=== PATIENT | male | born 1995 | race Caucasian/White ===

== ENCOUNTER 2018-05-17 10:23 | Emergency (ER) | payer SELFPAY ==
[~2018-05-17] VITALS: Ht 188 cm; Wt 106.6 kg
[~2018-05-17 10:23] MED LIST: AZIT250T12 PO; D-ME118S33 PO; SULF1TAB35 PO
--- NOTE | 2018-05-17 11:07 | Diagnostic Imaging Report ---
EXAM: HAND, RIGHT, 3 VIEWS INDICATION: Punched wall. Hand swelling. COMPARISON: None. FINDINGS: Comminuted fractures of the distal right fifth metacarpal with moderate volar angulation. No other fractures. No radiopaque foreign bodies. IMPRESSION: Comminuted fracture of the distal right fifth metacarpal with moderate volar angulation. Dictated by: Dictated on workstation # [id number]
--- NOTE | 2018-05-17 11:23 | ED Upper Extremity ---
General Chief Complaint: Upper Extremity Stated Complaint: RIGHT HAND PAIN FROM PUNCHING WALL Nursing Triage Note: pt presents to ed with complaints of r hand pain after punching a wall when upset at 1900 yesterday. Nursing Sepsis Screen: No Definite Risk Source: patient Exam Limitations: no limitations History of Present Illness Date Seen by Provider: May 17, 2018 Time Seen by Provider: 11:15 Initial Comments Patient is a 23-year-old male who presents to the emergency room with complaints of right hand pain after punching a wall at 1900 last night. He reports he became upset and punched a sheet rock wall. Onset: yesterday Pain/Injury Location: right hand Method of Injury: direct blow Modifying Factors: Worse With Movement Allergies and Home Medications Allergies Coded Allergies: No Known Drug Allergies (Unverified , 06/16/11) Home Medications Azithromycin 250 Mg Tablet, 250 MG PO UD TAKE 2 TABLETS ON DAY ONE THEN TAKE 1 TABLET DAILY FOR FOUR MORE DAYS Prescribed by: BRENDA ARCHER on 12/03/17 1125 D-Methorphan Hb/P-Epd HCl/Bpm 118 Ml Syrup, 5 ML PO Q4H PRN for CONGESTION Prescribed by: BRENDA ARCHER on 12/03/17 1125 Hydrocodone Bit/Acetaminophen 1 Tab Tab, 1-2 EACH PO Q6H PRN for PAIN-MODERATE Prescribed by: MADDI RAMOS on 05/17/18 1134 Sulfamethoxazole/Trimethoprim 1 Each Tablet, 1 EACH PO BID Prescribed by: BRENDA ARCHER on 07/01/16 1724 Patient Home Medication List Home Medication List Reviewed: Yes Review of Systems Constitutional: see HPI; No chills, No fever Musculoskeletal: joint pain (right hand pain), joint swelling (right hand swelling) All Other Systems Reviewed Negative Unless Noted: Yes Past Jzvhyof-Vvopye-Ywrpca Hx Past Med/Social Hx: Reviewed Nursing Past Med/Soc Hx Patient Social History Alcohol Use: Occasionally Uses Recreational Drug Use: No Smoking Status: Never a Smoker Recent Foreign Travel: No Contact w/Someone Who Travel: No Recent Infectious Disease Expo: No Recent Hopitalizations: No Physical Abuse: No Sexual Abuse: No Mistreated: No Fear: No Past Medical History Surgeries: No Respiratory: No Cardiac: No Neurological: No Reproductive Disorders: No Genitourinary: No Gastrointestinal: No Musculoskeletal: No Endocrine: No Cancer: No Psychosocial: No Integumentary: No Family Medical History Reviewed Nursing Family Hx Physical Exam Vital Signs Vital Signs - First Documented 05/17/18 10:32 Temp 98.1 Pulse 67 Resp 18 B/P (MAP) 116/75 (89) Pulse Ox 96 Capillary Refill : Less Than 3 Seconds Height, Weight, BMI Height: 6'2.00" Weight: 235lbs. oz. 106.197939nx; BMI Method:Stated General Appearance: WD/WN, no apparent distress HEENT: PERRL/EOMI Cardiovascular: normal peripheral pulses, regular rate, rhythm, no edema, no gallop, no JVD, no murmur Respiratory: chest non-tender, lungs clear, normal breath sounds, no respiratory distress, no accessory muscle use Wrist: Yes normal inspection, Yes non-tender (bilaterally) Hand: Right, bone tenderness, ecchymosis (over the fourth and fifth finger on the dorsal surface of the hand), soft tissue tenderness, swelling Neurologic/Tendon: normal sensation, normal motor functions, normal tendon functions, responds to pain, no evidence tendon injury, other (normal capillary refill) Neurologic/Psychiatric: alert, normal mood/affect, oriented x 3 Skin: normal color, warm/dry Procedures/Interventions Splinting and Joint Reduction : Pre-Proc Neuro Vasc Exam: normal Post-Proc Neuro Vasc Exam: normal Arm Sling: Large Hand-Made Type: orthoglass Splint Application: Short Arm (ulnar gutter) Progress/Results/Core Measures Results/Orders Vital Signs/I&O 05/17/18 05/17/18 10:32 12:01 Temp 98.1 Pulse 67 70 Resp 18 20 B/P (MAP) 116/75 (89) 120/74 (89) Pulse Ox 96 99 Blood Pressure Mean: 89 Progress Progress Note : Time: 11:27 Progress Note I have seen and evaluated the patient. He was placed in a ulnar gutter splint the right hand. He was instructed to follow-up with an orthopedic surgeon for further evaluation. He agrees with plan of care, return precautions were given. Diagnostic Imaging Diagonstic Imaging: Xray Plain Films/CT/US/NM/MRI: hand Comments VIA [facility]. [place], [place] NAME: JOVANYRAHUL Ari MED REC#: [id number] PT STATUS: REG ER : 1995 PHYSICIAN: COLLINS ORTIZ MD ADMIT DATE: 05/17/18/ER Draft Date of Exam:05/17/18 HAND, RIGHT, 3 VIEWS EXAM: HAND, RIGHT, 3 VIEWS INDICATION: Punched wall. Hand swelling. COMPARISON: None. FINDINGS: Comminuted fractures of the distal right fifth metacarpal with moderate volar angulation. No other fractures. No radiopaque foreign bodies. IMPRESSION: Comminuted fracture of the distal right fifth metacarpal with moderate volar angulation. Dictated on workstation # [id number] Dict: 05/17/18 1103 Trans: 05/17/18 1107 [facility] [id number] Interpreted by: MEGAN CASTANEDA MD Electronically signed by: Reviewed: Reviewed by Me Departure Impression Primary Impression: Fracture of hand Disposition: 01 HOME, SELF-CARE Condition: Stable/Unchanged Departure-Patient Inst. Decision time for Depature: 11:31 Referrals: ARGENIS SHEPPARD,LOCAL PHYSICIAN (PCP) Primary Care Physician LAMAR GONZALEZ MD Patient Instructions: Boxer's Fracture (DC), LOCAL PHYSICIAN LIST Add. Discharge Instructions: Wear the splint at all times. Take medication as directed. Follow-up with an orthopedic surgeon within 1 week for follow up calling first thing Saturday morning for an appointment time. Use ice to sore areas at 20 minute intervals. Follow-up with a primary care provider within 1 week for recheck. Return back to the emergency room for any worsening pain, swelling, numbness, tingling, worsening symptoms, or any other concerns as needed. All discharge instructions reviewed with patient and/or family. Voiced understanding. Scripts Hydrocodone Bit/Acetaminophen (Hydrocodone/Acetaminophen 5/325mg Tablet) 1 Tab Tab 1-2 EACH PO Q6H PRN for PAIN-MODERATE MDD 10, #20 TAB Prov: MADDI RAMOS 05/17/18 MADDI RAMOS May 17, 2018 11:23
[2018-05-17] MEDS ORDERED: ACHD5005 PO (11:34)
[2018-05-17 12:01] VITALS: BP 120/74
== END 2018-05-17 12:01 | disposition home or self-care (01) ==
LOC: EDUNIT# 10:23 → ER 10:25
DX: S62.316A Displaced fracture of base of fifth metacarpal bone, right hand, initial encounter for closed fracture (principal); W22.01XA Walked into wall, initial encounter
CPT/HCPCS: 29125; 73130

== ENCOUNTER 2019-04-09 00:18 | Emergency (ER) | payer OTHER ==
[~2019-04-09] VITALS: Ht 180.3 cm; Wt 90.7 kg
[~2019-04-09 00:18] MED LIST changes: +ACHD5005 PO
[2019-04-09 02:38] LABS: BILIRUBIN,URINE NEGATIVE (NEGATIVE); CLARITY,URINE CLEAR; COLOR,URINE AMBER; GLUCOSE, URINE (UA) NEGATIVE (NEGATIVE); KETONES,URINE 3+ (NEGATIVE); LEUKOCYTE ESTERASE ,URINE 1+ (NEGATIVE); NITRITE,URINE NEGATIVE (NEGATIVE); PH,URINE 5 (5-9); PROTEIN,URINE 2+ (NEGATIVE); UROBILINOGEN,URINE 1 MG/DL (NORMAL)
[2019-04-09 02:41] LABS: BASOPHILS # (AUTO) 0.1 10^3/uL (0.0-0.1); BASOPHILS % (AUTO) 0 % (0-10); EOSINOPHILS # (AUTO) 0.2 10^3/uL (0.0-0.3); EOSINOPHILS % (AUTO) 2 % (0-10); HEMATOCRIT 50 % (40-54); HEMOGLOBIN 17.6 G/DL (13.3-17.7); LYMPHOCYTES # (AUTO) 3.2 X 10^3 (1.0-4.0); LYMPHOCYTES % (AUTO) 25 % (12-44); MEAN CORPUSCULAR HEMOGLOBIN 30 PG (25-34); MEAN CORPUSCULAR HGB CONC 35 G/DL (32-36); MEAN CORPUSCULAR VOLUME 84 FL (80-99); MEAN PLATELET VOLUME 10.6 FL (7.4-10.4); MONOCYTES # (AUTO) 1.1 X 10^3 (0.0-1.0); MONOCYTES % (AUTO) 9 % (0-12); NEUTROPHILS % (AUTO) 64 % (42-75); PLATELET COUNT 331 10^3/uL (130-400); RED CELL DISTRIBUTION WIDTH 13.2 % (10.0-14.5); WHITE BLOOD COUNT 12.6 10^3/uL (4.3-11.0)
[2019-04-09 02:54] LABS: AMORPHOUS SEDIMENT,UR FEW AMOR URATES /LPF; BACTERIA,URINE TRACE /HPF; RBC,URINE RARE /HPF; SQUAMOUS EPITHELIAL CELL,UR RARE /HPF; WBC,URINE RARE /HPF
[2019-04-09 02:55] LABS: AMPHETAMINE SCREEN, URINE NEGATIVE (NEGATIVE); BARBITURATE SCREEN URINE NEGATIVE (NEGATIVE); BENZODIAZEPINES SCREEN URINE NEGATIVE (NEGATIVE); CANNABINOID SCREEN, URINE POSITIVE (NEGATIVE); COCAINE SCREEN URINE NEGATIVE (NEGATIVE); METHADONE STAT NEGATIVE (NEGATIVE); METHAMPHETAMINE SCREEN URINE S NEGATIVE (NEGATIVE); OPIATE SCREEN URINE NEGATIVE (NEGATIVE); OXYCODONE STAT NEGATIVE (NEGATIVE); PROPOXYPHENE STAT NEGATIVE (NEGATIVE); TRICYCLIC ANTIDEPRESSANTS SCRE NEGATIVE (NEGATIVE)
[2019-04-09 03:17] LABS: ALANINE AMINOTRANSFERASE 25 U/L (0-55); ALBUMIN 5.5 GM/DL (3.2-4.5); ALKALINE PHOSPHATASE 88 U/L (40-136); BILIRUBIN,TOTAL 2.5 MG/DL (0.1-1.0); BUN/CREATININE RATIO 16; CALCIUM 10.6 MG/DL (8.5-10.1); CARBON DIOXIDE 20 MMOL/L (21-32); CHLORIDE 106 MMOL/L (98-107); GFR ESTIMATED > 60; GLUCOSE 78 MG/DL (70-105); MAGNESIUM 2.2 MG/DL (1.6-2.4); POTASSIUM 3.7 MMOL/L (3.6-5.0); SODIUM 143 MMOL/L (135-145); TOTAL PROTEIN 9.6 GM/DL (6.4-8.2)
--- NOTE | 2019-04-09 03:39 | ED General ---
General Chief Complaint: Psych/Social Disorder Stated Complaint: CONFUSSED, MENTAL ISSUES,BLURRY VISION Nursing Triage Note: increased anxiety, blurred vision Nursing Sepsis Screen: No Definite Risk ([place]) History of Present Illness Date Seen by Provider: Apr 09, 2019 Time Seen by Provider: 02:45 Initial Comments 24 yo male presents to the ER complaining of blurry vision. Patients states that he believes he has had blurry vision due to high blood pressure, but does not have a primary care doctor to be diagnosed and treated. Vitals during the exam was BP of148/94 with a HR of 71. He has not had any pain but states that he has been nauseous for 2 weeks and has not been able to eat due to poor appetite. He was most symptomatic Saturday the (yesterday), when he began feeling SOB, headache, weakness, chills, lightheaded, and felt as if he was going to pass out. He drinks alcohol once every two months, smokes marijuana and quit smoking cigarettes 1.5 years ago. 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[place]) Allergies and Home Medications Allergies Coded Allergies: No Known Drug Allergies (Unverified , 06/16/11) Review of Systems Review of Systems Constitutional: chills, dizziness, weakness EENTM: blurred vision, throat pain; No double vision Respiratory: dyspnea on exertion, short of breath Gastrointestinal: No abdominal pain Psychiatric/Neurological: Headache ([place]) Past Rodsrbn-Qanipq-Txuvmf Hx Patient Social History Alcohol Use: Denies Use Recreational Drug Use: Yes Drug of Choice: marijuana Recent Foreign Travel: No Contact w/Someone Who Travel: No Recent Infectious Disease Expo: No Recent Hopitalizations: No Physical Abuse: No Sexual Abuse: No Mistreated: No Fear: No ([place]) Past Medical History Surgeries: No Respiratory: No Cardiac: No Neurological: No Reproductive Disorders: No Genitourinary: No Gastrointestinal: No Musculoskeletal: No Endocrine: No HEENT: No Cancer: No Psychosocial: Yes (WAS STARTED ON MEDICATION AT AGE 18 "IT DIDNT HELP") Depression Integumentary: No ([place]) Physical Exam Vital Signs Vital Signs - First Documented 04/09/19 01:13 Temp 97.8 Pulse 85 Resp 20 B/P (MAP) 140/110 (120) Pulse Ox 99 O2 Delivery Room Air (ANURAG ROJAS MD) Vital Signs Capillary Refill : Less Than 3 Seconds ([place]) Height, Weight, BMI Height: 5'11.00" Weight: 200lbs. oz. 90.135372gk; 22.80 BMI Method:Stated General Appearance: No Apparent Distress, WD/WN Eyes: Bilateral Eye Normal Inspection, Bilateral Eye PERRL, Bilateral Eye EOMI HEENT: TMs Normal, Normal ENT Inspection, Other (Uvula inflamed) Respiratory: Chest Non Tender, Lungs Clear, Normal Breath Sounds, No Accessory Muscle Use, No Respiratory Distress Cardiovascular: Regular Rate, Rhythm, No Edema, No Gallop, No JVD, No Murmur, Normal Peripheral Pulses Skin: Normal Color, Warm/Dry ([place]) Progress/Results/Core Measures Suspected Sepsis Recent Fever Within 48 Hours: No Infection Criteria Present: None New/Unexplained Altered Menta: No Sepsis Screen: No Definite Risk SIRS Temperature:97.8 Pulse: 85 Respiratory Rate: 20 Laboratory Tests 04/09/19 02:35: White Blood Count 12.6H Blood Pressure 140 /110 Mean: 120 Laboratory Tests 04/09/19 02:35: Creatinine 1.10, Platelet Count 331, Total Bilirubin 2.5H ([place]) Results/Orders Lab Results Laboratory Tests Test 04/09/19 02:34 04/09/19 02:35 04/09/19 02:36 Range/Units Urine Color SPENCER H Urine Clarity CLEAR Urine pH 5 5-9 Urine Specific [place] 1.030 H 1.016-1.022 Urine Protein 2+ H NEGATIVE Urine Glucose (UA) NEGATIVE NEGATIVE Urine Ketones 3+ H NEGATIVE Urine Nitrite NEGATIVE NEGATIVE Urine Bilirubin NEGATIVE NEGATIVE Urine Urobilinogen 1 NORMAL MG/DL Urine Leukocyte Esterase 1+ H NEGATIVE Urine RBC (Auto) NEGATIVE NEGATIVE Urine RBC RARE /HPF Urine WBC RARE /HPF Urine Squamous Epithelial Cells RARE /HPF Urine Crystals PRESENT H /LPF Urine Amorphous Sediment FEW SINA URATES H /LPF Urine Bacteria TRACE /HPF Urine Casts NONE /LPF Urine Mucus MODERATE H /LPF Urine Culture Indicated NO Urine Opiates Screen NEGATIVE NEGATIVE Urine Oxycodone Screen NEGATIVE NEGATIVE Urine Methadone Screen NEGATIVE NEGATIVE Urine Propoxyphene Screen NEGATIVE NEGATIVE Urine Barbiturates Screen NEGATIVE NEGATIVE Ur Tricyclic Antidepressants Screen NEGATIVE NEGATIVE Urine Phencyclidine Screen NEGATIVE NEGATIVE Urine Amphetamines Screen NEGATIVE NEGATIVE Urine Methamphetamines Screen NEGATIVE NEGATIVE Urine Benzodiazepines Screen NEGATIVE NEGATIVE Urine Cocaine Screen NEGATIVE NEGATIVE Urine Cannabinoids Screen POSITIVE H NEGATIVE White Blood Count 12.6 H 4.3-11.0 10^3/uL Red Blood Count 5.91 H 4.35-5.85 10^6/uL Hemoglobin 17.6 13.3-17.7 G/DL Hematocrit 50 40-54 % Mean Corpuscular Volume 84 80-99 FL Mean Corpuscular Hemoglobin 30 25-34 PG Mean Corpuscular Hemoglobin Concent 35 32-36 G/DL Red Cell Distribution Width 13.2 10.0-14.5 % Platelet Count 331 130-400 10^3/uL Mean Platelet Volume 10.6 H 7.4-10.4 FL Neutrophils (%) (Auto) 64 42-75 % Lymphocytes (%) (Auto) 25 12-44 % Monocytes (%) (Auto) 9 0-12 % Eosinophils (%) (Auto) 2 0-10 % Basophils (%) (Auto) 0 0-10 % Neutrophils # (Auto) 8.0 H 1.8-7.8 X 10^3 Lymphocytes # (Auto) 3.2 1.0-4.0 X 10^3 Monocytes # (Auto) 1.1 H 0.0-1.0 X 10^3 Eosinophils # (Auto) 0.2 0.0-0.3 10^3/uL Basophils # (Auto) 0.1 0.0-0.1 10^3/uL Sodium Level 143 135-145 MMOL/L Potassium Level 3.7 3.6-5.0 MMOL/L Chloride Level 106 98-107 MMOL/L Carbon Dioxide Level 20 L 21-32 MMOL/L Anion Gap 17 H 5-14 MMOL/L Blood Urea Nitrogen 18 7-18 MG/DL Creatinine 1.10 0.60-1.30 MG/DL Estimat Glomerular Filtration Rate > 60 BUN/Creatinine Ratio 16 Glucose Level 78 70-105 MG/DL Calcium Level 10.6 H 8.5-10.1 MG/DL Corrected Calcium 8.5-10.1 MG/DL Magnesium Level 2.2 1.6-2.4 MG/DL Total Bilirubin 2.5 H 0.1-1.0 MG/DL Aspartate Amino Transf (AST/SGOT) 23 5-34 U/L Alanine Aminotransferase (ALT/SGPT) 25 0-55 U/L Alkaline Phosphatase 88 40-136 U/L Total Protein 9.6 H 6.4-8.2 GM/DL Albumin 5.5 H 3.2-4.5 GM/DL Serum Alcohol < 10 <10 MG/DL Glucometer 77 70-110 MG/DL (ANURAG ROJAS MD) Micro Results Microbiology 04/09/19 Influenza Types A,B Antigen (LISSY) - Final, Complete (ANURAG ROJAS MD) My Orders Orders - ANURAG ROJAS MD Alcohol (04/09/19 00:44) Cbc With Automated Diff (04/09/19 00:44) Comprehensive Metabolic Panel (04/09/19 00:44) Drug Screen Stat (Urine) (04/09/19 00:44) Magnesium (04/09/19 00:44) Ua Culture If Indicated (04/09/19 00:44) Accucheck Stat ONCE (04/09/19 00:44) Ed Iv/Invasive Line Start (04/09/19 00:44) Lactated Ringers (Lr 1000 Ml Iv Solution (04/09/19 03:16) Influenza A And B Antigens (04/09/19 03:16) Chest Pa/Lat (2 View) (04/09/19 03:39) (ANURAG ROJAS MD) Medications Given in ED Current Medications Medications Dose Ordered Sig/Opal Route Start Time Stop Time Status Last Admin Dose Admin Lactated Ringer's 1,000 ml @ 0 mls/hr Q0M ONCE IV 04/09/19 03:16 04/09/19 03:18 DC 04/09/19 03:51 1,000 MLS/HR (ANURAG ROJAS MD) Vital Signs/I&O 04/09/19 01:13 Temp 97.8 Pulse 85 Resp 20 B/P (MAP) 140/110 (120) Pulse Ox 99 O2 Delivery Room Air (ANURAG ROJAS MD) Vital Signs/I&O Capillary Refill : Less Than 3 Seconds ([place]) Blood Pressure Mean: 120 Point of Care Testing Finger Stick Blood Glucose: 77 ([place] [facility]) Departure Impression Primary Impression: Cough Additional Impressions: Leukocytosis Qualified Codes: D72.829 - Elevated white blood cell count, unspecified Altered mental status Qualified Codes: R41.82 - Altered mental status, unspecified Uvulitis Disposition: HOME, SELF-CARE Condition: Improved Departure-Patient Inst. Decision time for Depature: 04:48 (ANURAG ROJAS MD) Referrals: NO,LOCAL PHYSICIAN (PCP/Family) Primary Care Physician Patient Instructions: Cough in Adults Add. Discharge Instructions: Drink plenty of clear liquids. Follow-up with a primary care provider soon as possible. Complete azithromycin as prescribed. Return to care if you have worsening symptoms. Consider also establishing with a behavioral health provider to work on issues of anxiety and anger. All discharge instructions reviewed with patient and/or family. Voiced understanding. Scripts Azithromycin (Azithromycin) 250 Mg Tablet 250 MG PO UD, #6 TAB TAKE 2 TABLETS ON DAY ONE THEN TAKE 1 TABLET DAILY FOR FOUR MORE DAYS Prov: ANURAG ROJAS MD 04/09/19 [facility] Apr 09, 2019 03:39 ANURAG ROJAS MD Apr 09, 2019 04:49
[2019-04-09] MEDS: LACTATED RINGERS 1,000 ML IV ONE (03:51)
[2019-04-09] MEDS ORDERED: AZIT250T12 PO (04:54)
[2019-04-09 04:55] VITALS: BP 143/89
--- NOTE | 2019-04-09 07:22 | Diagnostic Imaging Report ---
Patient History: Chest pain.. Technique: Two views of the chest Comparison: 12/03/2017 FINDINGS: The lung volumes are normal. No focal consolidation is seen. No large pleural effusion or pneumothorax is seen. The cardiomediastinal silhouette is normal in size and contour. No acute osseous abnormality is seen. IMPRESSION: No acute pulmonary abnormality seen. Dictated by: Dictated on workstation # [id number]
== END 2019-04-09 04:55 | disposition home or self-care (01) ==
LOC: EDUNIT# 00:18 → ER 00:22
DX: R05 Cough (principal); D72.829 Elevated white blood cell count, unspecified; R41.82 Altered mental status, unspecified; K12.2 Cellulitis and abscess of mouth; F32.9 Major depressive disorder, single episode, unspecified; Z87.891 Personal history of nicotine dependence
CPT/HCPCS: 36415; 71046; 80053; 80306; 80320; 81000; 82962; 83735; 85025; 87804

== ENCOUNTER → 2022-03-15 | Outpatient (CLI) | payer OTHER ==
[~2022-03-15] VITALS: Ht 180.3 cm; Wt 95.5 kg
[~2022-03-15] MED LIST changes: +DOCU-143 PO; -SULF1TAB35 PO; +SULF1TAB38 PO
== END | disposition home or self-care (01) ==
LOC: PREOP 05:33
PROVIDERS: ATTEND Surgery
DX: Z01.818 Encounter for other preprocedural examination (principal)

== ENCOUNTER 2022-03-21 06:13 | Day surgery (SDC) | payer OTHER ==
[~2022-03-21] VITALS: Ht 180.3 cm; Wt 95.5 kg
[2022-03-21] VITALS (11 sets, daily range): BP systolic 129–151; BP diastolic 62–89
[~2022-03-21 06:13] MED LIST changes: -DOCU-143 PO
[2022-03-21] MEDS ORDERED: ceFAZolin 2 GM IV Premixed 50 ML IV ONE (07:00)
[2022-03-21] MEDS ORDERED: proPOfol 200 MG/20 ML (DIPRIVAN) VIAL IV ONE (07:08)
[2022-03-21] MEDS ORDERED: ROCURONIUM 50 MG/5 ML (ZEMURON) VIAL IV ONE ×2 (07:08→09:10)
[2022-03-21] MEDS ORDERED: MIDAZOLAM 2 MG/2 ML (VERSED) VIAL ONE (07:08)
[2022-03-21] MEDS ORDERED: LIDOCAINE PF 2% 5 ML (XYLOCAINE) VIAL ONE (07:08)
[2022-03-21] MEDS ORDERED: fentaNYL INJ 100 MCG/2 ML AMP ONE ×2 (07:08→11:51)
[2022-03-21] MEDS ORDERED: LIDOCAINE/EPI 2% 1:200,00 (XYLOCAINE) 20 ML VIAL ONE (07:18)
[2022-03-21] MEDS: LACTATED RINGERS 1,000 ML IV PRN ×2 (07:20→08:58)
--- NOTE | 2022-03-21 07:59 | Progress Note-Pre Operative ---
Pre-Operative Progress Note Date of Available H&P: Feb 23, 2022 Date H&P Reviewed: Mar 21, 2022 Time H&P Reviewed: 07:45 History & Physical: H&P Reviewed, Patient Examed, No changes noted Pre-Operative Diagnosis: bilateral inguinal hernia LUCIANA SHELBY DO Mar 21, 2022 07:59
[2022-03-21] MEDS ORDERED: ONDANSETRON 4 MG/2 ML (SDV) Z0FRAN ONE (09:11)
[2022-03-21] MEDS ORDERED: GLYCOPYRROLATE 0.2 MG/ML (ROBINUL) 2 ML VIAL ONE ×2 (11:02→11:04)
[2022-03-21] MEDS ORDERED: NEOSTIGMINE (BLOXIVERZ ) 1 MG/1ML 10 ML VIAL ONE (11:02)
[2022-03-21] MEDS ORDERED: HYDROCORTISONE 100 MG/2 ML (Solu-CORTEF) VIAL ONE (11:10)
[2022-03-21] MEDS ORDERED: HYDROmorphone 2 MG/ML VIAL (DILAUDID) ONE (11:10)
[2022-03-21] MEDS ORDERED: DOCU-143 PO (11:16)
[2022-03-21] MEDS ORDERED: ACHD5005 PO (11:16)
--- NOTE | 2022-03-21 11:17 | Discharge Inst-Simple/Standard ---
Discharge Inst-Standard Discharge Medications New, Converted or Re-Newed RX: Transmitted to Pharmacy Patient Instructions/Follow Up Plan of Care/Instructions/FU: 2 weeks Albertina Activity as Tolerated: No Discharge Diet: Regular Diet Other Inst to Patient Follow up Appt: Make appointment for 2 week. Instructions: No lifting greater than 10 pounds. No strenuous activity. May shower in 24 hours, no tub bath or soaking. Use incentive spirometer at home as directed. No Smoking Skin/Wound Care: You have special glue over your incision that will fall off on it's own. Symptoms to Report: Appetite Changes, Extremity Discoloration, Numbness/Tingling, Swelling Increased, Bleeding Excessive, Eyesight Changes, Pain Increased, Urine Color Change, Constipation(Persistent), Fever over 101 degree F, Pain/Pressure in chest, Urinating Difficulty, Cough Up/Vomit Blood, Heart Beat Irreg/Pounding, Pain/Pressure in jaw, Vaginal Bleeding Increase, Cramps in feet or legs, Lightheadedness, Pain/Pressure in shoulder, Diarrhea(Persistent), Memory Changes Suddenly, Questions/Concerns, Weight gain consecutive days, Dizziness/Fainting, Nausea/Vomiting, Shortness of Breath, Weight gain over 2 pounds If questions or concerns contact your physician Or seek help at emergency department. LUCIANA SHELBY DO Mar 21, 2022 11:17
--- NOTE | 2022-03-21 11:18 | Progress Note-Post Operative ---
Post-Operative Progess Note Surgeon (s)/Javascript Web Developer (s) Surgeon LUCIANA SHELBY DO Javascript Web Developer: Dr. William Pre-Operative Diagnosis bilateral inguinal hernia Post-Operative Diagnosis b/l direct inguinal hernia cord left cord lipoma Procedure & Operative Findings Date of Procedure 03/21/22 Procedure Performed/Findings robotic b/l inguinal hernia repair c mesh, excision left cord lipoma Anesthesia Type general Estimated Blood Loss Estimated blood loss (mL): minimal Specimens/Packing Specimens Removed left cord lipoma LUCIANA SHELBY DO Mar 21, 2022 11:18
--- NOTE | 2022-03-21 11:41 | Anesthesia-General Post-Op ---
General Patient Condition Mental Status/LOC: Same as Preop Cardiovascular: Satisfactory Nausea/Vomiting: Absent Respiratory: Satisfactory Pain: Controlled Complications: Absent Post Op Complications Complications None Follow Up Care/Instructions Patient Instructions None needed. Anesthesia/Patient Condition Patient Condition Patient is doing well, no complaints, stable vital signs, no apparent adverse anesthesia problems. No complications reported per nursing. JAYESH SIMMS CRNA Mar 21, 2022 11:41
[2022-03-21] MEDS ORDERED: ONDANSETRON 4 MG/2 ML (SDV) Z0FRAN IVP PRN (11:45)
[2022-03-21] MEDS ORDERED: fentaNYL INJ 100 MCG/2 ML AMP IVP ONE (11:45)
[2022-03-21] MEDS ORDERED: HYDROcodone/APAP 5 MG/325 MG (LORTAB) TAB PO ONE (12:45)
[2022-03-21] MEDS ORDERED: HYDROcodone/APAP 5 MG/325 MG (LORTAB) TAB ONE (12:48)
[2022-03-21] MEDS ORDERED: SEVOFLURANE (ULTANE) 15 ML INHAL SOLN ONE (13:00)
--- NOTE | 2022-03-22 06:14 | OPERATIVE REPORT ---
DATE OF SERVICE: 03/21/2022 PREOPERATIVE DIAGNOSIS: Bilateral inguinal hernia. POSTOPERATIVE DIAGNOSIS: Bilateral direct inguinal hernias and left cord lipoma. PROCEDURE: Robotic bilateral inguinal hernia repair and excision with cord lipoma. SURGEON: Gaurav Eng DO. SUPERVISOR [employer]: Dr. William, assisted in retraction, dissection and closure. ANESTHESIA: General. ESTIMATED BLOOD LOSS: Minimal. COMPLICATIONS: None. INDICATIONS: The patient is a 27-year-old male with bilateral inguinal hernias. He understands risks and benefits of procedure and wishes to proceed. Consent was signed in the chart. DESCRIPTION OF PROCEDURE: The patient was taken to the operating suite, was prepped and draped in sterile fashion. Surgical pause was performed. Local anesthetic was infiltrated around the umbilicus. 11-blade scalpel was used to make a skin incision. Cautery was used to dissect down to the subcutaneous tissue. The fascia was then scored. A 0 Vicryl was placed in a [id number]-ew-bbnil fashion for closure at the end of the case. A madrigal trocar was inserted and pneumoperitoneum was achieved. Under direct visualization of the laparoscope, an 8 mm trocar was placed in the right side of the abdomen and one in the left side of the abdomen. The patient was placed head down approximately 15 degrees. The robot was then docked. The abdomen was inspected. The patient had bilateral direct inguinal hernias. The peritoneum was then taken down with blunt and scissor dissection all the way down to Darrell's ligament and also taken down bilaterally. The direct hernias were able to be dissected free. Left cord lipoma, which was dissected off with cautery scissors and removed. The peritoneum was taken down approximately 2 cm below Darrell's ligament on both medial and laterally. Once taken down, an extra-large left and right mesh was inserted into the abdomen, secured to Darrell's ligament on both sides and also secured laterally on the superior aspect of the mesh. Once both meshes were secured, a V-Loc suture was then used to close the peritoneum. A small tear was on the right peritoneum, which was closed with 3-0 Vicryl suture. All the needles were removed and the robot was undocked. The umbilical incision was then closed with the previously placed 0 Vicryl. The trocars were all removed and the skin was then closed using 4-0 Monocryl in subcuticular fashion. The abdomen was then washed and dried and skin Affix was placed over the incisions. The patient tolerated procedure well without any complications, taken to recovery room in stable condition. Job ID: [id number] DocumentID: [id number] Dictated Date: 03/21/2022 19:13:26 Account Support Specialist Date: 03/22/2022 06:14:19 Dictated By: DO SHYLA HEATON
== END 2022-03-21 14:35 | disposition home or self-care (01) ==
LOC: SDC 06:13
PROVIDERS: ATTEND Surgery
DX: K40.20 Bilateral inguinal hernia, without obstruction or gangrene, not specified as recurrent (principal); D17.6 Benign lipomatous neoplasm of spermatic cord; Z87.891 Personal history of nicotine dependence; Z88.5 Allergy status to narcotic agent
CPT/HCPCS: 49650; 55559; 87081; C1781 ×2

== ENCOUNTER 2023-02-02 12:07 | Emergency (ER) | payer OTHER ==
[~2023-02-02] VITALS: Ht 180.3 cm; Wt 88.5 kg
[~2023-02-02 12:07] MED LIST changes: +DOCU-143 PO
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
[2023-02-02] MEDS ORDERED: AZIT250T12 PO (13:28)
[2023-02-02 13:42] VITALS: BP 151/72
== END 2023-02-02 13:45 | disposition home or self-care (01) ==
LOC: EDUNIT# 12:07 → ER 12:11
DX: S06.0X0A Concussion without loss of consciousness, initial encounter (principal); T14.8XXA Other injury of unspecified body region, initial encounter; J32.9 Chronic sinusitis, unspecified; Z87.891 Personal history of nicotine dependence; Z28.310 Unvaccinated for COVID-19; V89.2XXA Person injured in unspecified motor-vehicle accident, traffic, initial encounter; Y92.410 Unspecified street and highway as the place of occurrence of the external cause
CPT/HCPCS: 70450